=== PATIENT | female | born 1945 | race Caucasian/White ===

== ENCOUNTER 2016-10-25 02:10 | Inpatient (IN) | payer OTHER, MEDICAID ==
[~2016-10-25] VITALS: Ht 149.9 cm; Wt 68.0 kg
[2016-10-25 02:10] VITALS: BP 169/88
[~2016-10-25 02:10] MED LIST: ALBUTEROL PO; CIPROFLOXACIN500 M1 PO; DEXILANT PO; LEVAQUIN500 MG PO; OYSTER CAL 500500 MG PO; PROMETHAZINE PO; QVAR HFA M80 MCG/ACT IH; SPIRIVA18 MCG IH; VENTOLIN H0.09 MG/Ac PO
--- NOTE | 2016-10-25 02:10 | NUR ---
0143- PT [facility]. TAKEN TO BED 7
--- NOTE | 2016-10-25 02:15 | NUR ---
71Y F BIB AMBULANCE AFTER PT FOUND LYING ON THE FLOOR. PT ANSWERS APPROPRIATELY BUT EASILY FORGETS. PT CANT REMEMBER THE DETAILS OF WHAT HAPPENED. NO DISTRESS NOTED. V/S MONITORED.
--- NOTE | 2016-10-25 02:32 | NUR ---
Dr. Hunt evaluating patient at bedside.
[2016-10-25] MEDS ORDERED: NACL 0.9% 1,000 ML IV ONE (02:45)
--- NOTE | 2016-10-25 03:12 | NUR ---
PT TAKEN TO CT
--- NOTE | 2016-10-25 03:29 | NUR ---
PT RETURN FROM CT
[2016-10-25] MEDS ORDERED: ASPIRIN 81 MG TAB.CHEW PO ONE (04:15)
--- NOTE | 2016-10-25 04:32 | NUR ---
PHLEB AT BEDSIDE FOR REPEAT TROPONIN
[2016-10-25] MEDS ORDERED: NITROGLYCERIN 2% 1 GM PKT TP ONE (05:05)
[2016-10-25] MEDS ORDERED: ONDANSETRON 4 MG/2 ML VIAL IVP PRN (05:20)
--- NOTE | 2016-10-25 06:16 | NUR ---
Patient will be admitted to care of DR BERNARD. Admited to TELEMETRY. Will go to room 109B. Belongings list completed. Report to MARGRET DONNELLY.
--- NOTE | 2016-10-25 06:40 | NUR ---
RECEIVED FROM ER PER SILVA. ABLE TO WALK FROM DOORWAY OF ROOM TO BED INSIDE ROOM WITH STANDBY ASSIST. DAUGHTER AT BEDSIDE . VERBALIZES WELL NEEDS. CARE PLANS FOR THE DAY DISCUSSED WITH PT. AND FAMILY MEMBERS. DX. OF CHEST PAIN R/O ACS. IVF SITE TO LAC#20. PATENT. PER PT. AND DAUGHTER "SKIN IS INTACT" REFUSED TO BE CHECKED. A/O X 4. RAPID RESPONSE PROTOCOL EXPLAINED TO PT. ORIENTED TO ROOM AND CALL LIGHT USE. AFEBRILE. BED ALARM ON. NO EDEMA NOTED.
[2016-10-25 06:53] VITALS: BP 150/87
--- NOTE | 2016-10-25 07:05 | NUR ---
RECEIVED REPORT FROM HOME HEALTH AIDE RN. PT IS AWAKE, A/O X 4, AMBULATORY. NO S/S OF ACUTE CARDIAC/RESPIRATORY DISTRESS OR DISCOMFORT. LAC 20G IV INTACT. LBM 10/24/16. SAFETY MEASURES IN PLACE, FALL RISK PRECAUTIONS IN PLACE, AND CALL LIGHT WITHIN REACH. WILL INITIATE PLAN OF CARE AND CONTINUE TO MONITOR.
[2016-10-25 08:00] VITALS: BP 118/69
[2016-10-25] MEDS ORDERED: ACETAMINOPHEN 325 MG TAB PO PRN (08:15)
[2016-10-25] MEDS ORDERED: TEMAZEPAM 15 MG CAP PO PRN (08:15)
[2016-10-25] MEDS ORDERED: cloNIDine 0.1 MG TAB PO PRN (08:15)
[2016-10-25] MEDS ORDERED: [UNRECOGNIZED DRUG - OTHER] INH SCH (09:00)
[2016-10-25] MEDS: ENOXAPARIN 30 MG/0.3 ML SYR SUBQ SCH (09:00)
[2016-10-25] MEDS: PANTOPRAZOLE 40 MG TABEC PO SCH (09:00)
[2016-10-25] MEDS ORDERED: DEXILANT 60 MG PO SCH (09:00)
[2016-10-25] MEDS: amLODIPine 5 MG TAB PO SCH (09:01)
[2016-10-25] MEDS: NACL 0.9% 1,000 ML IV SCH ×2 (09:09→15:40)
[2016-10-25] MEDS: IPRATROPIUM 0.02% 0.5 MG/2.5 ML NEBU INH SCH ×4 (09:14→21:03)
--- NOTE | 2016-10-25 10:00 | NUR ---
ADMINISTERED AM MEDS, PT TOLERATED AM MEDS WELL. NO S/S OF ACUTE DISTRESS OR DISCOMFORT. FAMILY AT BEDSIDE. CALL LIGHT WITHIN REACH. WILL CONTINUE TO MONITOR.
[2016-10-25 12:00] VITALS: BP 120/71
--- NOTE | 2016-10-25 13:10 | NUR ---
PT SLEEPING. NO S/S OF ACUTE DISTRESS OR DISCOMFORT. CALL LIGHT WITHIN REACH. WILL CONTINUE TO MONITOR.
--- NOTE | 2016-10-25 15:17 | NUR ---
PT IS RESTING WITH EYES CLOSED. NO S/S OF ACUTE DISTRESS OR DISCOMFORT. CALL LIGHT WITHIN REACH. WILL CONTINUE TO MONITOR.
[2016-10-25] MEDS: HYDROcodone/APAP 5/325 MG 1 TAB TAB PO PRN ×2 (15:39→19:39)
[2016-10-25 16:00] VITALS: BP 151/73
--- NOTE | 2016-10-25 17:13 | NUR ---
PT IS AWAKE, CONVERSING WITH FAMILY AT BEDSIDE. NO S/S OF ACUTE DISTRESS OR DISCOMFORT. CALL LIGHT WITHIN REACH. WILL CONTINUE TO MONITOR.
--- NOTE | 2016-10-25 19:04 | NUR ---
ENDORSED REPORT TO ROAD SIGN INSTALLER ANDRZEJ OSPINA. PT AWAKE, WITH FAMILY AT BEDSIDE. NO S/S OF ACUTE DISTRESS OR DISCOMFORT. PT IN STABLE CONDITION. CALL LIGHT WITHIN REACH.
--- NOTE | 2016-10-25 19:10 | NUR ---
RECEIVED PT AWAKE TALKING TO FAMILY MEMBERS AT BEDSIDE, AAOX4, COMPLAINING OF FABY KNEE/LEG PAIN, WILL MEDICATE PRN, VITAL SIGNS STABLE, IVF INFUSING WELL, POC DISCUSSED, ENCOURAGE TO USE CALL LIGHT FOR ASSISTANCE, VERBALIZED UNDERSTANDING, SAFETY PRECAUTIONS IN PLACE, SIDE RAILS UP AND BED ALARM ON, CALL LIGHT WITHIN REACH.
[2016-10-25 20:00] VITALS: BP 120/54
--- NOTE | 2016-10-25 21:15 | NUR ---
PT AMBULATED TO BR WITH MINIMAL ASSIST, ALL NEEDS ATTENDED.
[2016-10-26] VITALS: BP 109/56
--- NOTE | 2016-10-26 | NUR ---
ASLEEP, EASILY AROUSABLE, VITAL SIGNS STABLE, DENIES ANY PAIN, IVF INFUSING WELL, CONTINUE TO MONITOR CLOSELY.
[2016-10-26] MEDS: NACL 0.9% 1,000 ML IV SCH ×2 (00:51→16:36)
[2016-10-26] MEDS: HYDROcodone/APAP 5/325 MG 1 TAB TAB PO PRN ×2 (02:40→06:38)
--- NOTE | 2016-10-26 02:40 | NUR ---
PT ASSISTED TO BR, MEDICATED PRN FOR RT KNEE PAIN WITH NORCO, MONITORED CLOSELY.
[2016-10-26 04:00] VITALS: BP 116/58
--- NOTE | 2016-10-26 06:23 | NUR ---
AMBULATED TO BR WITH STANDBY ASSIST, COMPLAINING OF RT KNEE PAIN, WILL MEDICATE WHEN DUE, IVF INFUSING WELL.
--- NOTE | 2016-10-26 07:15 | NUR ---
PT AWAKE, NO SIGNS OF DISTRESS, REPORT GIVEN TO FRANCINE DONNELLY FOR CONTINUITY OF CARE.
--- NOTE | 2016-10-26 07:16 | NUR ---
RECEIVED PT FROM ANDRZEJ OSPINA AWAKE AND LYING ON BED, AAOX4, WITH IV ACCESS ON LEFT AC 20G INFUSING FLUIDS WELL. SKIN IS INTACT. NO S/S OF RESPIRATORY DISTRESS OR DISCOMFORT. DISCUSSED PLAN OF CARE, PT VERBALIZED UNDERSTANDING. CALL LIGHT WIHTIN REACH, WILL CONTINUE TO MONITOR.
[2016-10-26 08:00] VITALS: BP 145/82
[2016-10-26] MEDS: IPRATROPIUM 0.02% 0.5 MG/2.5 ML NEBU INH SCH ×3 (08:03→17:27)
[2016-10-26] MEDS ORDERED: ASPIRIN 81 MG TAB.CHEW PO SCH (09:00)
--- NOTE | 2016-10-26 09:05 | NUR ---
PATIENT HAS BEEN SCREENED AND CATEGORIZED MODERATE NUTRITION RISK. PATIENT WILL BE SEEN WITHIN 3-5 DAYS OF ADMISSION. 10/28/16-10/30/[address]
[2016-10-26] MEDS: PANTOPRAZOLE 40 MG TABEC PO SCH (09:08)
[2016-10-26] MEDS: amLODIPine 5 MG TAB PO SCH (09:09)
[2016-10-26] MEDS: ENOXAPARIN 30 MG/0.3 ML SYR SUBQ SCH (09:16)
--- NOTE | 2016-10-26 09:20 | NUR ---
DUE MEDS GIVEN, PT TOLERATED WELL. COMPLAINED OF VOMITING, ZOFRAN GIVEN ORDERED. PAGED FOR LOW MAGNESIUM, WILL CARRY OUT NEW ORDERS. CALL LIGHT WITHIN REACH, WILL CONTINUE TO MONITOR.
[2016-10-26] MEDS: MAG SULF 2000 MG/WATER PREMIX 100 ML IV SCH ×2 (09:58→12:56)
--- NOTE | 2016-10-26 11:27 | NUR ---
JOY NOTE INITIAL REVIEW FAXED TO [facility] / FAX# [phone], ATTN: ELVIA #[phone]
--- NOTE | 2016-10-26 11:45 | NUR ---
PT AWAKE WHILE SITTING ON BED, WITH DAUGHTERS AT BEDSIDE. PT REQUESTS XRAY OF KNEE, INFORMED DR BERNARD TO VERIFY.
[2016-10-26 12:00] VITALS: BP 148/80
--- NOTE | 2016-10-26 14:31 | NUR ---
DR BERNARD AT NURSES STATION
[2016-10-26 16:00] VITALS: BP 147/76
--- NOTE | 2016-10-26 16:26 | NUR ---
DISCHARGE INSTRUCTIONS GIVEN, PT VERBALIZED UNDERSTANDING. WITH DAUGHTER AT BEDSIDE. NO S/S OF RESPIRATORY DISTRESS, NO COMPLAINTS AT THIS TIME. WAITING FOR MAGNESIUM IV TO FINISH BEFORE PT LEAVES.
--- NOTE | 2016-10-26 17:50 | NUR ---
PT LEFT UNIT WITH DAUGHTERS IN STABLE CONDITION
== END 2016-10-26 17:50 | disposition home or self-care (01) | DRG 895 ==
LOC: MED 02:10 → MTU 05:24
PROVIDERS: ADMIT Internal Medicine Pulmonary Disease; ATTEND Internal Medicine Pulmonary Disease
PROC: HZ31ZZZ Individual Counseling for Substance Abuse Treatment, Behavioral (ICD-10-PCS; principal; 2016-10-25)
DX: F10.129 Alcohol abuse with intoxication, unspecified (principal); N17.9 Acute kidney failure, unspecified; R55 Syncope and collapse; I12.9 Hypertensive chronic kidney disease with stage 1 through stage 4 chronic kidney disease, or unspecified chronic kidney disease; Y90.8 Blood alcohol level of 240 mg/100 ml or more; E86.0 Dehydration; J44.9 Chronic obstructive pulmonary disease, unspecified; K21.9 Gastro-esophageal reflux disease without esophagitis; M10.9 Gout, unspecified; N18.3 Chronic kidney disease, stage 3 (moderate); F17.210 Nicotine dependence, cigarettes, uncomplicated; W19.XXXA Unspecified fall, initial encounter; Z90.12 Acquired absence of left breast and nipple; Z79.899 Other long term (current) drug therapy; Z85.3 Personal history of malignant neoplasm of breast

== ENCOUNTER 2021-07-01 13:29 | Emergency (ER) | payer OTHER ==
[~2021-07-01] VITALS: Ht 152.4 cm; Wt 63.5 kg
[~2021-07-01 13:29] MED LIST changes: -ALBUTEROL PO; +BECL0.089 IH; -CIPROFLOXACIN500 M1 PO; -LEVAQUIN500 MG PO; -OYSTER CAL 500500 MG PO; -PROMETHAZINE PO; -QVAR HFA M80 MCG/ACT IH; -SPIRIVA18 MCG IH; +TIOT18CA2 IH; -VENTOLIN H0.09 MG/Ac PO
[2021-07-01 13:52] VITALS: BP 128/60
--- NOTE | 2021-07-01 14:06 | NUR ---
Patient wheelchair assisted to bed 11.
--- NOTE | 2021-07-01 14:10 | NUR ---
76 y/o F BIB daughter from home c/o SOB, cough and muscle cramps during dialysis treatment today. Patient A&Ox4, ambulatory, states at dialysis receiving 3 hour treatment and began experiencing worsening SOB upon physical exertion. Patient MWF, completed full, 3 hour treatment today prior to arrival. States during dialysis she typically has abdominal pain with bilateral LE cramping. Patient states productive cough + SOB x 1 week ago and reports concern for possible PNA. Patient presents with dialysis port L upper chest + received recent surgery for fistula to left UE. Patient denies fever, chills, abdominal pain, nausea, vomiting, diarrhea, dysuria, chest pain, back pain. Pt placed onto web database developer and gown provided. VSS; respirations even/unlabored. Skin warm/pink/dry. Bed locked in lowest position, side rails x 1, call light in reach. PMH/Sx: breast cancer, kidney failure, dialysis MWF, "mild stroke," HLD, hysterectomy Meds: amlodipine, actavis, greenstone, zydus, atorvastatin, sevelamer, Vit D3, Zinc NKA
--- NOTE | 2021-07-01 14:10 | NUR ---
Dr. Jones is evaluating patient at bedside.
--- NOTE | 2021-07-01 14:40 | NUR ---
RAD at bedside
--- NOTE | 2021-07-01 15:06 | NUR ---
Blood sample collected, handed to CPT. Brigette
[2021-07-01 15:14] LABS: BASOPHILS # (AUTO) 0.1 K/uL (0.00-0.22); BASOPHILS % (AUTO) 0.9 % (0.0-2.0); EOSINOPHILS # (AUTO) 0.3 K/uL (0-0.4); EOSINOPHILS % (AUTO) 3.8 % (0.0-4.0); HEMATOCRIT 35.2 % (36-48); LYMPHOCYTES % (AUTO) 15.2 % (20.5-51.1); MEAN CORPUSCULAR HEMOGLOBIN 35 pg (27-31); MEAN CORPUSCULAR HGB CONC 34 g/dL (33-37); MEAN CORPUSCULAR VOLUME 103.3 fL (80-94); MONOCYTES # (AUTO) 0.3 K/uL (0.8-1.0); MONOCYTES % (AUTO) 4.1 % (1.7-9.3); NEUTROPHILS # (AUTO) 5.2 K/uL (1.8-7.7); PLATELET COUNT (AUTO) 249 K/uL (140-450); RED BLOOD CELL COUNT(AUTO) 3.41 MIL/uL (4.20-5.40); RED CELL DISTRIBUTION WIDTH 13.9 % (11.6-13.7); WHITE BLOOD COUNT (AUTO) 6.8 K/uL (4.8-10.8)
[2021-07-01 15:30] LABS: ANION GAP 13.3 (8-16); ASPARTATE AMINOTRANSFERASE 37 U/L (15-37); CARBON DIOXIDE 29.5 mmol/L (21-32); CHLORIDE 95 mmol/L (98-107); GLUCOSE 92 mg/dL (74-106); POTASSIUM 4.8 mmol/L (3.5-5.1); SODIUM SERUM 133 mmol/L (136-145); TOTAL BILIRUBIN 0.6 mg/dL (0.0-1.0); UREA NITROGEN, BLOOD 19 mg/dL (7-18)
[2021-07-01 15:31] LABS: CREATININE 4.3 mg/dL (0.6-1.3)
[2021-07-01 15:40] LABS: CREATINE KINASE MB 0.5 ng/mL (0-3.6)
[2021-07-01] MEDS ORDERED: NICO4LOZ35 PO (18:05)
[2021-07-01] MEDS ORDERED: NICO1PAT16 TD (18:05)
[2021-07-01 18:30] VITALS: BP 107/53
--- NOTE | 2021-07-01 18:30 | NUR ---
Patient discharged with v/s stable. Written and verbal after care instructions given and explained. Patient alert, oriented and verbalized understanding of instructions. Ambulatory with steady gait. All questions addressed prior to discharge. ID band removed. Patient advised to follow up with PMD. Rx of Nicotine Patch, Nicotine Logenze given. Patient educated on indication of medication including possible reaction and side effects. Opportunity to ask questions provided and answered.
== END 2021-07-01 18:30 | disposition home or self-care (01) ==
LOC: MED 13:29
DX: R06.02 Shortness of breath (principal); R05.9 Cough, unspecified; I12.9 Hypertensive chronic kidney disease with stage 1 through stage 4 chronic kidney disease, or unspecified chronic kidney disease; N18.2 Chronic kidney disease, stage 2 (mild); F17.210 Nicotine dependence, cigarettes, uncomplicated
CPT/HCPCS: 36415; 71045; 80053; 82550; 82553; 83880; 84484; 85025; 93005; 99285; Q0092

== ENCOUNTER 2021-07-14 08:21 | Emergency (ER) | payer OTHER ==
[~2021-07-14] VITALS: Ht 134.6 cm; Wt 62.6 kg
[~2021-07-14 08:21] MED LIST changes: +NICO1PAT16 TD; +NICO4LOZ35 PO
[2021-07-14 08:49] VITALS: BP 156/86
--- NOTE | 2021-07-14 08:49 | NUR ---
PT W/C ASSISTED TO BED 1
--- NOTE | 2021-07-14 09:00 | NUR ---
DR GONZALEZ EVALUATING PT AT THIS TIME
[2021-07-14] MEDS ORDERED: ACETAMINOPHEN 325 MG TAB PO SCH (09:05)
--- NOTE | 2021-07-14 09:30 | NUR ---
76 Y/O FEMALE BIB DAUGHTER C/O GALVAN, SORE THROAT, FACE SWELLING, SOB, COUGH, STUFFY NOSE, FATIGUE X3 DAYS. PT IS A DIALYSIS PT, MISSED WEDNESDAY AND TODAY D/T FEELING SICK. CRACKLES AUSCULTATED THROUGHOUT. SPO2 100% ON RA. NO SIGNS OF DISTRESS. PTS HOB ELEVATED TO 90 DEGREES. PT HAS MODERATE EYELID SWELLING. NO EDEMA NOTED. PT HAS DIALYSIS SHUNT TO L ARM AND NEW DIALYSIS PORT TO UPPER L CHEST. PT DENIES PAIN AT THIS TIME. DENIES N/V/CP. PT IS COVID/FLU VACCINATED. PT ON BACON STRINGER, A/O X4, EVEN AND UNLABORED RESPIRATIONS. 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
[2021-07-14] MEDS ORDERED: predniSONE 20 MG TAB PO ONE (10:30)
[2021-07-14] MEDS ORDERED: ALBUTEROL HFA MDI 90 MCG/ACTUATION 8 GM INH ONE (10:30)
--- NOTE | 2021-07-14 10:40 | NUR ---
RT AT BEDSIDE FOR BREATHING TREATMENT
[2021-07-14 11:45] VITALS: BP 123/75
--- NOTE | 2021-07-14 11:45 | NUR ---
Patient discharged with v/s stable. Written and verbal after care instructions ABOUT SORE THROAT given and explained. Patient verbalized understanding. Wheel Chair Assisted with to LOBBY TO WAIT FOR DAUGHTER. All questions addressed prior to discharge. Advised to follow up with PMD.
== END 2021-07-14 11:45 | disposition home or self-care (01) ==
LOC: MED 08:21
DX: J02.9 Acute pharyngitis, unspecified (principal); I12.0 Hypertensive chronic kidney disease with stage 5 chronic kidney disease or end stage renal disease; N18.6 End stage renal disease; Z99.2 Dependence on renal dialysis; Z20.822 Contact with and (suspected) exposure to COVID-19; J44.9 Chronic obstructive pulmonary disease, unspecified; F17.200 Nicotine dependence, unspecified, uncomplicated; Z86.73 Personal history of transient ischemic attack (TIA), and cerebral infarction without residual deficits; Z85.3 Personal history of malignant neoplasm of breast; Z79.899 Other long term (current) drug therapy
CPT/HCPCS: 87426; 94664; 99283; J7512

== ENCOUNTER 2021-08-31 17:20 | Emergency (ER) | payer OTHER ==
[~2021-08-31] VITALS: Ht 152.4 cm; Wt 68.0 kg
[2021-08-31 17:32] VITALS: BP 128/59
--- NOTE | 2021-08-31 17:38 | NUR ---
PT SENT TO LOBBY
--- NOTE | 2021-08-31 17:58 | NUR ---
PT AMBULATED TO ER BED 8
--- NOTE | 2021-08-31 18:29 | NUR ---
Lab at bedside
--- NOTE | 2021-08-31 18:30 | NUR ---
76 y/o F BIB daughter c/o L sided facial swelling/headache. Pt A&Ox4, ambulatory, states associated L eye blurry vision and pain. Pt states dizziness as well since waking up this morning. Patient reports headache 3/10, sharp/intermittent, non-radiating. Patient also reports Left shoulder and L upper chest dialysis port pain 6/10, pressure/intermittent, non-radiating. Pt dialysis patient: MWF last completed treatment Wednesday. Pt denies nausea, vomiting, diarrhea, chest pain, abdominal pain, neck pain, muscle aches, fever, chills, cough. Pt placed onto fitting room associate and placed into a gown. VSS; respirations even/unlabored. Bed locked in lowest position, side rails x 2 for pt safety. Daughter at bedside. PMH: HTN, ESRD Meds: amlodipine, actavis, Zydus, sevelaver Sx: breast cancer, hysterectomy
[2021-08-31 18:43] LABS: BASOPHILS # (AUTO) 0.1 K/uL (0.00-0.22); BASOPHILS % (AUTO) 0.8 % (0.0-2.0); EOSINOPHILS # (AUTO) 0.3 K/uL (0-0.4); EOSINOPHILS % (AUTO) 4.1 % (0.0-4.0); HEMATOCRIT 29.5 % (36-48); HEMOGLOBIN 10.4 g/dL (12.0-16.0); LYMPHOCYTES # (AUTO) 1.5 K/uL (2.5-16.5); LYMPHOCYTES % (AUTO) 22.4 % (20.5-51.1); MEAN CORPUSCULAR HEMOGLOBIN 36 pg (27-31); MEAN CORPUSCULAR HGB CONC 35 g/dL (33-37); MEAN CORPUSCULAR VOLUME 100.9 fL (80-94); MONOCYTES # (AUTO) 0.6 K/uL (0.8-1.0); MONOCYTES % (AUTO) 9.6 % (1.7-9.3); NEUTROPHILS # (AUTO) 4.2 K/uL (1.8-7.7); NEUTROPHILS % (AUTO) 63.1 % (42.2-75.2); PLATELET COUNT (AUTO) 217 K/uL (140-450); RED BLOOD CELL COUNT(AUTO) 2.93 MIL/uL (4.20-5.40); RED CELL DISTRIBUTION WIDTH 13.8 % (11.6-13.7); WHITE BLOOD COUNT (AUTO) 6.7 K/uL (4.8-10.8)
--- NOTE | 2021-08-31 18:52 | NUR ---
Unable to obtain IV. ERMD made aware; Ultrasound at bedside for guided IV
[2021-08-31 18:53] LABS: ANION GAP 14.9 (8-16); CARBON DIOXIDE 28.4 mmol/L (21-32); CHLORIDE 100 mmol/L (98-107); GLUCOSE 105 mg/dL (74-106); POTASSIUM 4.3 mmol/L (3.5-5.1); SODIUM SERUM 139 mmol/L (136-145); UREA NITROGEN, BLOOD 26 mg/dL (7-18)
[2021-08-31 18:55] LABS: CREATININE 7.2 mg/dL (0.6-1.3)
--- NOTE | 2021-08-31 19:01 | NUR ---
ZEKE Rodriges is at bedside for ultrasound guided IV
[2021-08-31] MEDS ORDERED: ACETAMINOPHEN 650 MG/20.3 ML UDC PO ONE (19:05)
--- NOTE | 2021-08-31 19:25 | NUR ---
Report and transfer of care endorsed to ANDRZEJ Diggs
--- NOTE | 2021-08-31 20:42 | NUR ---
Pt back from CT.
[2021-08-31] MEDS ORDERED: ACETAMINOPHEN 650 MG/20.3 ML UDC ONE (20:45)
--- NOTE | 2021-08-31 22:50 | NUR ---
Note corrina in EDM - 08/31/21 at 2349 by [email or web address] PT LYING SIDEWAYS IN BED. X2 SIDE RAILS UP FOR SAFETY. ALL VSS .
--- NOTE | 2021-08-31 23:00 | NUR ---
PT LYING IN LT LATERAL POSITION. X2 SIDE RAILS UP FOR SAFETY. ALL VSS.
--- NOTE | 2021-08-31 23:00 | NUR ---
PT DAUGHTER NUMBER : BURT [phone]
--- NOTE | 2021-09-01 00:17 | NUR ---
DR. AKINS AT BEDSIDE EXPLAINING RESULTS OF CT. ALL PT QUESTIONS ANSWERED. PT TO FOLLOW UP [facility]
--- NOTE | 2021-09-01 00:29 | NUR ---
ASSISTED PT TO RESTROOM. DAUGHTER AT BEDSIDE
[2021-09-01 01:23] VITALS: BP 122/49
--- NOTE | 2021-09-01 01:23 | NUR ---
Patient discharged with v/s stable. Written and verbal after care instructions given and explained. Patient verbalized understanding. Ambulatory with steady gait. All questions addressed prior to discharge. Advised to follow up with PMD.
== END 2021-09-01 01:23 | disposition home or self-care (01) ==
LOC: MED 17:20
DX: R07.89 Other chest pain (principal); I12.0 Hypertensive chronic kidney disease with stage 5 chronic kidney disease or end stage renal disease; N18.6 End stage renal disease
CPT/HCPCS: 36415; 71260; 80048; 85025; 99285; Q9967

== ENCOUNTER 2022-08-16 11:04 | Emergency (ER) | payer OTHER ==
[~2022-08-16] VITALS: Ht 157.5 cm; Wt 79.4 kg
[2022-08-16 11:12] VITALS: BP 113/50
--- NOTE | 2022-08-16 11:14 | NUR ---
SWABBED AND SENT TO LAB
[2022-08-16 12:18] LABS: RSV NEGATIVE (NEGATIVE)
[2022-08-16] MEDS ORDERED: PROM118S5 PO (14:01)
== END 2022-08-16 14:14 | disposition home or self-care (01) ==
LOC: MED 11:04
DX: B34.9 Viral infection, unspecified (principal); I12.0 Hypertensive chronic kidney disease with stage 5 chronic kidney disease or end stage renal disease; N18.6 End stage renal disease; Z99.2 Dependence on renal dialysis; Z20.822 Contact with and (suspected) exposure to COVID-19; F17.200 Nicotine dependence, unspecified, uncomplicated; J44.9 Chronic obstructive pulmonary disease, unspecified; Z71.6 Tobacco abuse counseling; Z86.73 Personal history of transient ischemic attack (TIA), and cerebral infarction without residual deficits; Z85.3 Personal history of malignant neoplasm of breast; Z79.899 Other long term (current) drug therapy
CPT/HCPCS: 71045; 87420; 99284

== ENCOUNTER 2022-12-11 19:52 | Inpatient (IN) | payer OTHER ==
[~2022-12-11] VITALS: Ht 149.9 cm; Wt 64.9 kg
[~2022-12-11 19:52] MED LIST changes: +PROM118S5 PO
[2022-12-11 19:55] VITALS: BP 110/52
--- NOTE | 2022-12-11 19:55 | NUR ---
TO BED VIA W/C
--- NOTE | 2022-12-11 20:03 | NUR ---
SEEN AND EXAMINED BY LAUREL
--- NOTE | 2022-12-11 20:15 | NUR ---
Patient received on bed lying comfortably and awake. Alert and oriented x4. No acute distresss. Complained of 8/10 chest pain and right lower extremity. Respirations even and rate at 22 per minute with O2 Saturation at 99% on room air.
[2022-12-11 20:51] LABS: BASOPHILS # (AUTO) 0.1 K/uL (0.00-0.22); BASOPHILS % (AUTO) 1.4 % (0.0-2.0); EOSINOPHILS # (AUTO) 0.2 K/uL (0-0.4); EOSINOPHILS % (AUTO) 2.6 % (0.0-4.0); HEMOGLOBIN 11.1 g/dL (12.0-16.0); LYMPHOCYTES # (AUTO) 1.9 K/uL (2.5-16.5); LYMPHOCYTES % (AUTO) 25.9 % (20.5-51.1); MEAN CORPUSCULAR HEMOGLOBIN 34 pg (27-31); MEAN CORPUSCULAR HGB CONC 35 g/dL (33-37); MEAN CORPUSCULAR VOLUME 97.6 fL (80-94); MONOCYTES # (AUTO) 0.6 K/uL (0.8-1.0); MONOCYTES % (AUTO) 7.9 % (1.7-9.3); NEUTROPHILS # (AUTO) 4.4 K/uL (1.8-7.7); NEUTROPHILS % (AUTO) 62.2 % (42.2-75.2); PLATELET COUNT (AUTO) 224 K/uL (140-450); RED BLOOD CELL COUNT(AUTO) 3.28 MIL/uL (4.20-5.40); RED CELL DISTRIBUTION WIDTH 13.4 % (11.6-13.7); WHITE BLOOD COUNT (AUTO) 7.2 K/uL (4.8-10.8)
[2022-12-11 21:28] LABS: ALBUMIN 3.6 g/dL (3.4-5.0); ANION GAP 8.4 (8-16); ASPARTATE AMINOTRANSFERASE 18 U/L (15-37); CARBON DIOXIDE 34.7 mmol/L (21-32); CHLORIDE 98 mmol/L (98-107); CREATININE 3.3 mg/dL (0.6-1.3); GLUCOSE 98 mg/dL (74-106); POTASSIUM 3.1 mmol/L (3.5-5.1); SODIUM SERUM 138 mmol/L (136-145); TOTAL BILIRUBIN 0.4 mg/dL (0.0-1.0); UREA NITROGEN, BLOOD 10 mg/dL (7-18)
[2022-12-12] MEDS ORDERED: DOCUSATE SODIUM 100 MG GELCAP PO PRN (01:05)
[2022-12-12] MEDS ORDERED: LORazepam 2 MG/ML VIAL IM/IVP PRN (01:05)
[2022-12-12] MEDS ORDERED: ONDANSETRON 4 MG/2 ML VIAL IM/IVP PRN (01:05)
[2022-12-12] MEDS ORDERED: ZOLPIDEM 5 MG TAB PO PRN (01:05)
[2022-12-12] MEDS ORDERED: ACETAMINOPHEN 325 MG TAB PO PRN (01:05)
[2022-12-12] MEDS ORDERED: NACL 0.9% 1,000 ML IV SCH (01:05)
[2022-12-12] MEDS ORDERED: MORPHINE SULFATE 2 MG/ML SYR IVP PRN (01:05)
[2022-12-12] MEDS ORDERED: NITROGLYCERIN 0.4 MG TAB SL ONE (01:15)
[2022-12-12] MEDS ORDERED: NITROGLYCERIN 0.4 MG TAB SL PRN (01:35)
--- NOTE | 2022-12-12 02:54 | NUR ---
RAFAEL, DAUGHTER [phone]
[2022-12-12 03:08] LABS: PHOSPHORUS 2.3 mg/dL (2.5-4.9)
[2022-12-12 03:10] LABS: PROTHROMBIN TIME 10.4 secs (10.8-13.4)
[2022-12-12 07:06] LABS: EOSINOPHILS % (AUTO) 3.2 % (0.0-4.0); HEMATOCRIT 32.6 % (36-48); HEMOGLOBIN 11.2 g/dL (12.0-16.0); LYMPHOCYTES % (AUTO) 27.4 % (20.5-51.1); MEAN CORPUSCULAR HEMOGLOBIN 34 pg (27-31); MEAN CORPUSCULAR HGB CONC 34 g/dL (33-37); MEAN CORPUSCULAR VOLUME 97.8 fL (80-94); MONOCYTES % (AUTO) 7.1 % (1.7-9.3); NEUTROPHILS # (AUTO) 4.2 K/uL (1.8-7.7); NEUTROPHILS % (AUTO) 61.3 % (42.2-75.2); PLATELET COUNT (AUTO) 242 K/uL (140-450); RED BLOOD CELL COUNT(AUTO) 3.33 MIL/uL (4.20-5.40); RED CELL DISTRIBUTION WIDTH 13.5 % (11.6-13.7); WHITE BLOOD COUNT (AUTO) 6.9 K/uL (4.8-10.8)
[2022-12-12 07:07] LABS: BASOPHILS # (AUTO) 0.1 K/uL (0.00-0.22); EOSINOPHILS # (AUTO) 0.2 K/uL (0-0.4); LYMPHOCYTES # (AUTO) 1.9 K/uL (2.5-16.5); MONOCYTES # (AUTO) 0.5 K/uL (0.8-1.0)
[2022-12-12 07:11] LABS: MAGNESIUM 2.2 mg/dL (1.8-2.4); PHOSPHORUS 3.1 mg/dL (2.5-4.9)
[2022-12-12 07:23] LABS: ANION GAP 11.3 (8-16); CARBON DIOXIDE 33.1 mmol/L (21-32); CHLORIDE 98 mmol/L (98-107); GLUCOSE 92 mg/dL (74-106); POTASSIUM 3.4 mmol/L (3.5-5.1); SODIUM SERUM 139 mmol/L (136-145); UREA NITROGEN, BLOOD 12 mg/dL (7-18)
[2022-12-12 07:28] LABS: CREATININE 4.1 mg/dL (0.6-1.3)
--- NOTE | 2022-12-12 07:30 | NUR ---
PT ON THE PHONE, NO AC DISTRESS, DENIES ANY PAIN, NSR ON CM, O2 SAT 98% RA, SR UP TIMES 2
--- NOTE | 2022-12-12 08:20 | NUR ---
PT ARRIVED TO MST UNIT AT 0815 VIA GURNEY. PT STABLE AND ABLE TO AMBULATE WITH ASSISTANCE TO BED. PT ON RM AIR, IV TO RIGHT AC, CLEAN/INTACT. SON WITH PT AT BEDSIDE. WILMER CAREGIVER: BURT [id number] ORIENTED PT TO BED MECHANICS, BATHROOM, VISITING HOURS, CALL LIGHT. BED IN LOWEST POSITION, 2 SIDE RAILS UP, CALL LIGHT PLACED WITHIN REACH. NO FURTHER NEEDS ARE TO BE MET AT THIS TIME. WILL CONTINUE WITH CARE.
--- NOTE | 2022-12-12 08:23 | NUR ---
TRANSFERRED TO [facility], REPORT TO PEDRO LUIS. NO AC DISTRESS, SL PATENT RAC
[2022-12-12] MEDS: ATORVASTATIN 20 MG TAB PO SCH (09:53)
[2022-12-12] MEDS: ASPIRIN 81 MG TAB.CHEW PO SCH (09:54)
[2022-12-12] MEDS: HYDROcodone/APAP 5/325 MG 1 TAB TAB PO PRN (10:05)
[2022-12-12 12:00] VITALS: BP 132/61
[2022-12-12] MEDS ORDERED: POTASSIUM CHLORIDE 10 MEQ TABER PO SCH (13:24)
[2022-12-12] MEDS ORDERED: ALEN35TA PO (14:10)
[2022-12-12] MEDS ORDERED: SEVE800T6 PO (14:10)
[2022-12-12] MEDS ORDERED: AMLO10TA PO (14:10)
[2022-12-12] MEDS ORDERED: CINA30TA4 PO (14:10)
[2022-12-12] MEDS ORDERED: CARV3.12 PO (14:10)
[2022-12-12] MEDS ORDERED: GABA100C PO (14:10)
[2022-12-12] MEDS ORDERED: ATOR10TA51 PO (14:10)
[2022-12-12] MEDS ORDERED: [UNRECOGNIZED DRUG - CODE] PO (14:10)
[2022-12-12 16:00] VITALS: BP 110/57
--- NOTE | 2022-12-12 19:29 | NUR ---
ENDORSED PT TO NIGHTSHIFT NURSE FOR CONTINUITY OF CARE. PT IS STABLE, ASLEEP IN BED, WOKE TO NAME AND TOUCH. NO FURTHER NEEDS ARE TO BE MET AT THIS TIME. BED IN LOWEST POSITION, 2 SIDE RAILS UP, CALL LIGHT WITHIN REACH.
--- NOTE | 2022-12-12 19:30 | NUR ---
RECEIVED REPORT FROM DAY SHIFT NURSE MARILYN FOR CONTINUITY OF CARE. PATIENT IS A&O X4. PATIENT IS ON ROOM AIR; BREATHING IS NORMAL WITH SYMMETRICAL RISE AND FALL OF CHEST. IV IS A 20G RAC, NO FLUIDS RUNNING AT THIS TIME. PATIENT IS SITTING IN BED IN HIGH-FOWLERS POSITION. BED IS IN LOWEST POSITION, WHEELS LOCKED, CALL LIGHT IN PLACE. WILL CONTINUE TO OBSERVE PATIENT.
[2022-12-12 20:00] VITALS: BP 104/39
[2022-12-13] VITALS: BP 112/52
[2022-12-13 04:00] VITALS: BP 124/52
[2022-12-13] MEDS: HYDROcodone/APAP 5/325 MG 1 TAB TAB PO PRN (04:54)
--- NOTE | 2022-12-13 04:56 | NUR ---
PATIENT HAS SLEPT THROUGHOUT THE NIGHT. PATIENT WOKE UP AND COMPLAINED OF HEADACHE 6/10 AND REQUESTED A NORCO FOR THE PAIN. CHECKED CHART, NORCO WAS APPROPRIATE TO ADMINISTER. NORCO WAS ADMINISTERED TO PATIENT WITHOUT ANY ISSUES WITH SWALLOWING. PATIENT'S BREATHING IS NORMAL WITH SYMMETRICAL RISE AND FALL OF CHEST. WILL CONTINUE TO OBSERVE PATIENT.
[2022-12-13 06:16] LABS: BASOPHILS # (AUTO) 0.1 K/uL (0.00-0.22); BASOPHILS % (AUTO) 1.1 % (0.0-2.0); EOSINOPHILS # (AUTO) 0.2 K/uL (0-0.4); EOSINOPHILS % (AUTO) 2.8 % (0.0-4.0); HEMATOCRIT 31.7 % (36-48); LYMPHOCYTES # (AUTO) 1.7 K/uL (2.5-16.5); LYMPHOCYTES % (AUTO) 22.9 % (20.5-51.1); MEAN CORPUSCULAR HEMOGLOBIN 34 pg (27-31); MEAN CORPUSCULAR HGB CONC 35 g/dL (33-37); MEAN CORPUSCULAR VOLUME 98.5 fL (80-94); MONOCYTES # (AUTO) 0.5 K/uL (0.8-1.0); MONOCYTES % (AUTO) 6.4 % (1.7-9.3); NEUTROPHILS # (AUTO) 5.1 K/uL (1.8-7.7); NEUTROPHILS % (AUTO) 66.8 % (42.2-75.2); PLATELET COUNT (AUTO) 227 K/uL (140-450); RED BLOOD CELL COUNT(AUTO) 3.22 MIL/uL (4.20-5.40); RED CELL DISTRIBUTION WIDTH 13.5 % (11.6-13.7); WHITE BLOOD COUNT (AUTO) 7.6 K/uL (4.8-10.8)
[2022-12-13 06:29] LABS: ANION GAP 13.8 (8-16); CARBON DIOXIDE 30.1 mmol/L (21-32); CHLORIDE 100 mmol/L (98-107); GLUCOSE 94 mg/dL (74-106); POTASSIUM 3.9 mmol/L (3.5-5.1); SODIUM SERUM 140 mmol/L (136-145); UREA NITROGEN, BLOOD 22 mg/dL (7-18)
[2022-12-13 06:34] LABS: MAGNESIUM 2.4 mg/dL (1.8-2.4); PHOSPHORUS 3.9 mg/dL (2.5-4.9)
[2022-12-13 06:35] LABS: CREATININE 5.6 mg/dL (0.6-1.3)
--- NOTE | 2022-12-13 06:41 | NUR ---
RECEIVED CRITICAL LAB FOR CREATININE 5.6. MESSAGED DR. JENKINS. PENDING RESPONSE.
--- NOTE | 2022-12-13 07:37 | NUR ---
ENDORSED TO DAY SHIFT NURSE ERIN FOR CONTINUITY OF CARE. PATIENT IS STABLE.
[2022-12-13] MEDS: ATORVASTATIN 20 MG TAB PO SCH (08:36)
[2022-12-13] MEDS: ASPIRIN 81 MG TAB.CHEW PO SCH (08:36)
--- NOTE | 2022-12-13 09:31 | NUR ---
NURSES NOTE PATIENT RECEIVED AT BED SIDE A/OX4 , VSS , SINUS RHYTHM ON MONITOR , ON RENAL DIET SKIN INTACT , HAS EDEMA , LOWER EXTREMITY WEAKNESS , AMBULATORY WITH WALKER MINIMAL ASSISTANCE , ON ROOM AIR, SALINE LOCKED , SAFETY PROACTION IN PLACE , SIDE RAILS UP X3 , BED IN LOWER POSITION , CALL LIGHT WITHIN REACH , CONTINENT BOTH GI AND CU , NO COMPLAIN AT THIS TIME EDUCATION ABOUT MEDS , SAFETY , CARE PLAN , PT STILL UNDER OBSERVE
[2022-12-13 09:35] VITALS: BP 123/50
[2022-12-13 12:20] VITALS: BP 127/50
--- NOTE | 2022-12-13 12:57 | NUR ---
NURSES NOTE PATIENT A/OX4 , VSS , SINUS PEG CARDIA , ON ROOM AIR , CONTINENT X2 , NO COMPLAIN AT THIS TIME WILL CONTINUE OBSERVE .
--- NOTE | 2022-12-13 15:43 | NUR ---
UPDATE ON PATIENT PT SCHEDULE FOR HD TOMORROW NURSES NOTE PATIENT RECEIVED AT BED SIDE A/OX4 , VSS , SINUS RHYTHM ON MONITOR , ON RENAL DIET SKIN INTACT , HAS EDEMA , LOWER EXTREMITY WEAKNESS , AMBULATORY WITH WALKER MINIMAL ASSISTANCE , ON ROOM AIR, SALINE LOCKED , SAFETY PROACTION IN PLACE , SIDE RAILS UP X3 , BED IN LOWER POSITION , CALL LIGHT WITHIN REACH , CONTINENT BOTH GI AND CU BUT SOME TIME CIRILO , NO COMPLAIN AT THIS TIME EDUCATION ABOUT MEDS , SAFETY , CARE PLAN , PT STILL UNDER OBSERVE
[2022-12-13 16:24] VITALS: BP 125/56
--- NOTE | 2022-12-13 19:06 | NUR ---
REPORT GIVEN TO BK DONNELLY ALL HER QUESTION ANSWER .
--- NOTE | 2022-12-13 19:08 | NUR ---
PT IS AWAKE, ALERT AND VERBALLY RESPONSIVE. SON IS AT BEDSIDE. PT IS ABLE TO AMBULATE TO RESTROOM INDEPENDENTLY. IV SITE IS ON RIGHT FOREARM, INTACT AND PATENT.
[2022-12-13 20:00] VITALS: BP 131/60
--- NOTE | 2022-12-13 20:46 | NUR ---
PT COMPLAINTS OF CHEST PAIN ON LEFT SIDE RADIATING TO LEFT SHOULDER AND BACK. NITROGLYCERIN ADMINISTERED X 1, PT STATED CHEST PAIN IS GONE AWAY.
--- NOTE | 2022-12-13 23:00 | NUR ---
PT SLEEPS WELL.
[2022-12-14] VITALS: BP 123/57
--- NOTE | 2022-12-14 01:00 | NUR ---
PT IS ASLEEP, NO FACIAL GRIMACING.
--- NOTE | 2022-12-14 03:00 | NUR ---
PT IS ASLEEP.
[2022-12-14 04:00] VITALS: BP 137/64
--- NOTE | 2022-12-14 05:00 | NUR ---
PT IS AWAKE AND DENIES OF FEELING PAIN.
--- NOTE | 2022-12-14 06:30 | NUR ---
PT DONE RECEIVING DIALYSIS, 1L OUT. PT IS STABLE. NO FURTHER NEEDS ARE TO BE MET AT THIS TIME, WILL CONTINUE WITH CARE. Addendum: 12/14/22 at 2023 by PEDRO LUIS LEMUS RN TIME 1830, NOT [id number]
--- NOTE | 2022-12-14 07:00 | NUR ---
RECEIVED REPORT FROM NIGHTSHIFT NURSE. PT IS ASLEEP IN BED, WOKE TO NAME AND TOUCH, NO REPORTS OF PAIN OR DISCOMFORT A THIS TIME. PT AOX4, ON RM AIR. IV TO RIGHT AC 20G, SALINE LOCK, CLEAN AND INTACT. NO FURTHER NEEDS ARE TO BE MET AT THIS TIME. WILL CONTINUE WITH CARE. BED IN LOWEST POSITION, 2 SIDE RAILS UP, CALL LIGHT WITHIN REACH.
[2022-12-14 07:43] LABS: BASOPHILS # (AUTO) 0.1 K/uL (0.00-0.22); BASOPHILS % (AUTO) 0.8 % (0.0-2.0); EOSINOPHILS # (AUTO) 0.3 K/uL (0-0.4); EOSINOPHILS % (AUTO) 3.5 % (0.0-4.0); HEMOGLOBIN 10.5 g/dL (12.0-16.0); LYMPHOCYTES # (AUTO) 1.7 K/uL (2.5-16.5); LYMPHOCYTES % (AUTO) 22.5 % (20.5-51.1); MEAN CORPUSCULAR HEMOGLOBIN 34 pg (27-31); MEAN CORPUSCULAR HGB CONC 35 g/dL (33-37); MEAN CORPUSCULAR VOLUME 98.2 fL (80-94); MONOCYTES # (AUTO) 0.5 K/uL (0.8-1.0); MONOCYTES % (AUTO) 6.5 % (1.7-9.3); NEUTROPHILS # (AUTO) 4.9 K/uL (1.8-7.7); NEUTROPHILS % (AUTO) 66.7 % (42.2-75.2); PLATELET COUNT (AUTO) 218 K/uL (140-450); RED BLOOD CELL COUNT(AUTO) 3.06 MIL/uL (4.20-5.40); RED CELL DISTRIBUTION WIDTH 13.4 % (11.6-13.7); WHITE BLOOD COUNT (AUTO) 7.4 K/uL (4.8-10.8)
[2022-12-14 08:00] VITALS: BP 132/52
[2022-12-14 08:02] LABS: ANION GAP 14.5 (8-16); CARBON DIOXIDE 28.8 mmol/L (21-32); CHLORIDE 101 mmol/L (98-107); GLUCOSE 92 mg/dL (74-106); POTASSIUM 4.3 mmol/L (3.5-5.1); SODIUM SERUM 140 mmol/L (136-145); UREA NITROGEN, BLOOD 31 mg/dL (7-18)
[2022-12-14 08:09] LABS: CREATININE 6.7 mg/dL (0.6-1.3)
[2022-12-14 08:10] LABS: MAGNESIUM 2.4 mg/dL (1.8-2.4); PHOSPHORUS 3.9 mg/dL (2.5-4.9)
[2022-12-14] MEDS: ASPIRIN 81 MG TAB.CHEW PO SCH (08:36)
[2022-12-14] MEDS: ATORVASTATIN 20 MG TAB PO SCH (08:36)
[2022-12-14] MEDS: HYDROcodone/APAP 5/325 MG 1 TAB TAB PO PRN ×2 (08:36→20:28)
[2022-12-14] MEDS ORDERED: ASPI81CT95 PO (10:43)
[2022-12-14] MEDS ORDERED: ATOR20TA40 PO (10:43)
[2022-12-14 12:00] VITALS: BP 110/49
[2022-12-14 16:00] VITALS: BP 105/45
[2022-12-14 16:44] VITALS: BP 110/49
--- NOTE | 2022-12-14 19:10 | NUR ---
PT DONE RECEIVING DIALYSIS AT 1830, 1L OUT. PT IS STABLE. INFORMED OF DISCHARGE, PROVIDED DISCHARGE INSTRUCTIONS. PT VERBALIZE UNDERSTANDING. ENDORSED PT TO NIGHTSHIFT NURSE FOR CONTINUITY OF CARE.
--- NOTE | 2022-12-14 20:28 | NUR ---
PT COMPLAINTS OF HAVING NUMB AND PAIN ON LEFT ARM 5/10 RELATED TO HER AV SHUNT ON THAT ARM. PAIN MEDICATION NORCO ADMINISTERED ORDERED.
--- NOTE | 2022-12-14 21:08 | NUR ---
NIGHT MEDICATIONS ADMINISTERED TO PT. PT TOLERATES WELL WITH NO SIDE REACTION.
--- NOTE | 2022-12-14 21:10 | NUR ---
PT DISCHARGE HOME WITH DAUGHTER IN [employer]. PT HAS STABLE GAIT AND VERBALIZED TO WILLING TO AMBULATE TO THE CAR. PT REFUSE TO USE WHEELCHAIR. SKIN IS INTACT AND WARM.
== END 2022-12-14 21:10 | disposition home or self-care (01) | DRG 205 ==
LOC: MED 19:52 → MTU 12-12 01:09
PROVIDERS: ADMIT Student in an Organized Health Care Education/Training Program; ATTEND Student in an Organized Health Care Education/Training Program
PROC: 5A1D70Z Performance of Urinary Filtration, Intermittent, Less than 6 Hours Per Day (ICD-10-PCS; principal; 2022-12-14)
DX: M94.0 Chondrocostal junction syndrome [Tietze] (principal); N18.6 End stage renal disease; I12.0 Hypertensive chronic kidney disease with stage 5 chronic kidney disease or end stage renal disease; Z20.822 Contact with and (suspected) exposure to COVID-19; E87.6 Hypokalemia; E78.5 Hyperlipidemia, unspecified; J44.9 Chronic obstructive pulmonary disease, unspecified; D63.1 Anemia in chronic kidney disease; Z99.2 Dependence on renal dialysis; Z85.3 Personal history of malignant neoplasm of breast; Z79.899 Other long term (current) drug therapy
CPT/HCPCS: 36415; 71045; 80048; 80053; 83605; 83735; 83880; 84100; 84484; 85025; 85379; 85610; 85730; 87040; 87081; 99285; J1644

== ENCOUNTER 2023-06-01 12:54 | Emergency (ER) | payer OTHER ==
[~2023-06-01] VITALS: Ht 149.9 cm; Wt 61.8 kg
[~2023-06-01 12:54] MED LIST changes: +ALEN35TA PO; +AMLO10TA PO; +ASPI81CT95 PO; +ATOR20TA40 PO; +CARV3.12 PO; +CINA30TA4 PO; +GABA100C PO; +SEVE800T6 PO; +[UNRECOGNIZED DRUG - CODE] PO
[2023-06-01 13:09] VITALS: BP 144/58; PULSE 60; RESP 18; TEMP 97.7; O2SAT 100
[2023-06-01 13:40] VITALS: O2SAT 100
[2023-06-01] MEDS ORDERED: ALBU10.7 (14:06)
[2023-06-01] MEDS ORDERED: CICL6.6S22 TP (14:06)
[2023-06-01] MEDS ORDERED: AMLO10TA88 PO (14:06)
[2023-06-01] MEDS ORDERED: GABA-636 PO (14:06)
[2023-06-01] MEDS ORDERED: SEVE800T6 (14:06)
[2023-06-01] MEDS ORDERED: ATOR10TA51 PO (14:06)
[2023-06-01] MEDS ORDERED: [UNRECOGNIZED DRUG - CODE] PO (14:06)
[2023-06-01] MEDS ORDERED: CARV3.122 PO (14:06)
[2023-06-01 14:12] LABS: BASOPHILS # (AUTO) 0.1 K/uL (0.00-0.22); BASOPHILS % (AUTO) 0.9 % (0.0-2.0); EOSINOPHILS # (AUTO) 0.3 K/uL (0-0.4); HEMATOCRIT 28.6 % (36-48); HEMOGLOBIN 9.9 g/dL (12.0-16.0); LYMPHOCYTES # (AUTO) 1.7 K/uL (2.5-16.5); LYMPHOCYTES % (AUTO) 25.1 % (20.5-51.1); MEAN CORPUSCULAR HEMOGLOBIN 34 pg (27-31); MEAN CORPUSCULAR HGB CONC 35 g/dL (33-37); MEAN CORPUSCULAR VOLUME 97.1 fL (80-94); MONOCYTES # (AUTO) 0.6 K/uL (0.8-1.0); PLATELET COUNT (AUTO) 217 K/uL (140-450); RED BLOOD CELL COUNT(AUTO) 2.95 MIL/uL (4.20-5.40); RED CELL DISTRIBUTION WIDTH 14.8 % (11.6-13.7); WHITE BLOOD COUNT (AUTO) 6.7 K/uL (4.8-10.8)
[2023-06-01 14:39] VITALS: BP 114/88; PULSE 63; RESP 18; O2SAT 100
[2023-06-01] MEDS ORDERED: ACETAMINOPHEN 325 MG TAB PO ONE (14:50)
[2023-06-01] MEDS ORDERED: MECLIZINE 25 MG TAB PO ONE (14:50)
[2023-06-01 14:53] LABS: PARTIAL THROMBOPLASTIN TIME 28.1 secs (22-35.6); PROTHROMBIN TIME 10.5 secs (10.8-13.4)
[2023-06-01 14:58] LABS: ALANINE AMINOTRANSFERASE 16 U/L (12-78); ALBUMIN 3.5 g/dL (3.4-5.0); ALKALINE PHOSPHATASE 112 U/L (50-136); ANION GAP 10.6 (8-16); ASPARTATE AMINOTRANSFERASE 11 U/L (15-37); CARBON DIOXIDE 32.6 mmol/L (21-32); CHLORIDE 100 mmol/L (98-107); GLUCOSE 94 mg/dL (74-106); POTASSIUM 4.2 mmol/L (3.5-5.1); SODIUM SERUM 139 mmol/L (136-145); TOTAL BILIRUBIN 0.5 mg/dL (0.0-1.0); UREA NITROGEN, BLOOD 17 mg/dL (7-18)
[2023-06-01 15:07] LABS: CREATININE 4.6 mg/dL (0.6-1.3)
[2023-06-01] MEDS ORDERED: methylPREDNISolone SS 125 MG/2 ML VIAL IVP ONE (16:05)
[2023-06-01] MEDS ORDERED: MECL-416 PO (17:09)
[2023-06-01 17:22] LABS: APPEARANCE,URINE CLEAR (CLEAR); BILIRUBIN,URINE NEGATIVE (NEGATIVE); BLOOD, URINE NEGATIVE (NEGATIVE); COLOR,URINE YELLOW (YELLOW); LEUKOCYTE ESTERASE ,URINE NEGATIVE (NEGATIVE); NITRITE, URINE NEGATIVE (NEGATIVE); PH,URINE 8.5 (5.0-9.0); PROTEIN,URINE 2+ (NEGATIVE); UGLUCOSE NEGATIVE (NEGATIVE); UROBILINOGEN,URINE 0.2 EU/dL (0.2 - 1)
== END 2023-06-01 17:34 | disposition home or self-care (01) ==
LOC: MED 12:54
DX: M25.512 Pain in left shoulder (principal); M54.2 Cervicalgia; R42 Dizziness and giddiness; R51.9 Headache, unspecified; J45.909 Unspecified asthma, uncomplicated; J44.9 Chronic obstructive pulmonary disease, unspecified; I12.0 Hypertensive chronic kidney disease with stage 5 chronic kidney disease or end stage renal disease; N18.6 End stage renal disease; Z79.899 Other long term (current) drug therapy
CPT/HCPCS: 36415; 70450; 70496; 70498; 71045; 73030; 80053; 81003; 84484; 85025; 85610; 85730; 93005; 96374; 99285; J2930; J8597; Q0163; Q9967

== ENCOUNTER 2023-08-04 13:17 | Emergency (ER) | payer OTHER ==
[~2023-08-04] VITALS: Ht 149.9 cm; Wt 61.2 kg
[~2023-08-04 13:17] MED LIST changes: +ALBU10.7; +AMLO10TA88 PO; +ATOR10TA51 PO; +CARV3.122 PO; +CICL6.6S22 TP; +GABA-636 PO; +MECL-416 PO; +SEVE800T6; +[UNRECOGNIZED DRUG - CODE] PO
[2023-08-04 13:29] VITALS: BP 117/53; PULSE 76; RESP 14; TEMP 98.8; O2SAT 97
[2023-08-04 15:08] LABS: BASOPHILS # (AUTO) 0.1 K/uL (0.00-0.22); BASOPHILS % (AUTO) 1.1 % (0.0-2.0); EOSINOPHILS # (AUTO) 0.2 K/uL (0-0.4); EOSINOPHILS % (AUTO) 2.6 % (0.0-4.0); HEMATOCRIT 34.9 % (36-48); HEMOGLOBIN 11.9 g/dL (12.0-16.0); LYMPHOCYTES # (AUTO) 1.6 K/uL (2.5-16.5); LYMPHOCYTES % (AUTO) 21.2 % (20.5-51.1); MEAN CORPUSCULAR HEMOGLOBIN 34 pg (27-31); MEAN CORPUSCULAR HGB CONC 34 g/dL (33-37); MEAN CORPUSCULAR VOLUME 99.2 fL (80-94); MONOCYTES # (AUTO) 0.6 K/uL (0.8-1.0); MONOCYTES % (AUTO) 7.9 % (1.7-9.3); NEUTROPHILS % (AUTO) 67.2 % (42.2-75.2); PLATELET COUNT (AUTO) 240 K/uL (140-450); RED BLOOD CELL COUNT(AUTO) 3.52 MIL/uL (4.20-5.40); RED CELL DISTRIBUTION WIDTH 13.7 % (11.6-13.7); WHITE BLOOD COUNT (AUTO) 7.5 K/uL (4.8-10.8)
[2023-08-04 15:32] LABS: ALANINE AMINOTRANSFERASE 17 U/L (12-78); ALBUMIN 3.8 g/dL (3.4-5.0); ALKALINE PHOSPHATASE 131 U/L (50-136); ANION GAP 10.4 (8-16); ASPARTATE AMINOTRANSFERASE 14 U/L (15-37); CALCIUM 8.8 mg/dL (8.5-10.1); CARBON DIOXIDE 34.5 mmol/L (21-32); CHLORIDE 98 mmol/L (98-107); CREATININE 2.8 mg/dL (0.6-1.3); GLUCOSE 85 mg/dL (74-106); POTASSIUM 3.9 mmol/L (3.5-5.1); SODIUM SERUM 139 mmol/L (136-145); TOTAL BILIRUBIN 0.5 mg/dL (0.0-1.0); TOTAL PROTEIN, SERUM 7.8 g/dL (6.4-8.2); UREA NITROGEN, BLOOD 6 mg/dL (7-18)
[2023-08-04 15:33] LABS: PROTHROMBIN TIME 10.5 secs (10.8-13.4)
[2023-08-04] MEDS ORDERED: IPRATROPIUM 0.02% 0.5 MG/2.5 ML NEBU INH ONE (15:45)
[2023-08-04] MEDS ORDERED: ALBUTEROL 0.083% 2.5 MG/3 ML NEBU INH ONE (15:45)
[2023-08-04] MEDS ORDERED: ACETAMINOPHEN EXTRA STRENGTH 500 MG TAB PO ONE (16:15)
[2023-08-04 16:17] VITALS: PULSE 72; RESP 16; RESP 18; O2SAT 97
[2023-08-04 18:00] VITALS: BP 119/58; PULSE 72; RESP 15; TEMP 98.8; O2SAT 97
== END 2023-08-04 18:00 | disposition home or self-care (01) ==
LOC: MED 13:17
DX: J06.9 Acute upper respiratory infection, unspecified (principal); J45.909 Unspecified asthma, uncomplicated; J44.9 Chronic obstructive pulmonary disease, unspecified; I12.0 Hypertensive chronic kidney disease with stage 5 chronic kidney disease or end stage renal disease; N18.6 End stage renal disease; Z86.73 Personal history of transient ischemic attack (TIA), and cerebral infarction without residual deficits; Z99.2 Dependence on renal dialysis; Z79.899 Other long term (current) drug therapy
CPT/HCPCS: 36415; 71045; 80053; 83880; 84484; 85025; 85610; 85730; 93005; 94640; 99285; J7613; J7644

== ENCOUNTER 2024-06-27 11:01 | Inpatient (IN) | payer OTHER ==
[~2024-06-27] VITALS: Ht 149.9 cm; Wt 63.5 kg
[2024-06-27 11:29] VITALS: BP 144/62; PULSE 61; RESP 16; TEMP 97; O2SAT 100
[2024-06-27] MEDS: ACETAMINOPHEN EXTRA STRENGTH 500 MG TAB PO ONE (12:16)
[2024-06-27 12:48] LABS: BASOPHILS # (AUTO) 0.1 K/uL (0.00-0.22); BASOPHILS % (AUTO) 1.2 % (0.0-2.0); EOSINOPHILS # (AUTO) 0.2 K/uL (0-0.4); EOSINOPHILS % (AUTO) 2.6 % (0.0-4.0); HEMATOCRIT 32.4 % (36-48); HEMOGLOBIN 11.1 g/dL (12.0-16.0); LYMPHOCYTES # (AUTO) 1.2 K/uL (2.5-16.5); LYMPHOCYTES % (AUTO) 16.5 % (20.5-51.1); MEAN CORPUSCULAR HEMOGLOBIN 34 pg (27-31); MEAN CORPUSCULAR HGB CONC 34 g/dL (33-37); MEAN CORPUSCULAR VOLUME 98.2 fL (80-94); MONOCYTES # (AUTO) 0.4 K/uL (0.8-1.0); MONOCYTES % (AUTO) 5.7 % (1.7-9.3); NEUTROPHILS # (AUTO) 5.4 K/uL (1.8-7.7); PLATELET COUNT (AUTO) 223 K/uL (140-450); RED CELL DISTRIBUTION WIDTH 14.9 % (11.6-13.7); WHITE BLOOD COUNT (AUTO) 7.3 K/uL (4.8-10.8)
[2024-06-27 13:22] LABS: CALCIUM 8.1 mg/dL (8.5-10.1); CARBON DIOXIDE 33.2 mmol/L (21-32); CHLORIDE 98 mmol/L (98-107); GLUCOSE 86 mg/dL (74-106); POTASSIUM 4.2 mmol/L (3.5-5.1); SODIUM SERUM 138 mmol/L (136-145); UREA NITROGEN, BLOOD 20 mg/dL (7-18)
[2024-06-27 13:30] LABS: FLU A ANTIGEN negative (NEGATIVE); FLU B ANTIGEN negative (NEGATIVE)
[2024-06-27 13:35] LABS: LACTIC ACID 1.1 mmol/L (0.4-2.0)
[2024-06-27 13:38] LABS: CREATININE 5.2 mg/dL (0.6-1.3)
[2024-06-27 13:57] LABS: APPEARANCE,URINE CLEAR (CLEAR); BILIRUBIN,URINE NEGATIVE (NEGATIVE); BLOOD, URINE NEGATIVE (NEGATIVE); COLOR,URINE YELLOW (YELLOW); LEUKOCYTE ESTERASE ,URINE NEGATIVE (NEGATIVE); NITRITE, URINE NEGATIVE (NEGATIVE); PH,URINE 8.5 (5.0-9.0); PROTEIN,URINE NEGATIVE (NEGATIVE); UGLUCOSE NEGATIVE (NEGATIVE); UROBILINOGEN,URINE 0.2 EU/dL (0.2 - 1)
[2024-06-27] MEDS ORDERED: ONDANSETRON 4 MG/2 ML VIAL IVP PRN (16:00)
[2024-06-27] MEDS ORDERED: AZITHROMYCIN 500 MG in DEXTROSE 5% 250 ML IV SCH (16:00)
[2024-06-27] MEDS ORDERED: MORPHINE SULFATE 2 MG/ML SYR IVP PRN (16:00)
[2024-06-27] MEDS ORDERED: cefTRIAXone 1,000 MG VIAL ONE (16:09)
[2024-06-27] MEDS ORDERED: AZITHROMYCIN 500 MG INJ VIAL IV ONE (16:47)
[2024-06-27] MEDS: AZITHROMYCIN 500 MG in DEXTROSE 5% 250 ML IV SCH (16:57)
[2024-06-27 17:30] VITALS: BP 135/50; PULSE 61; RESP 18; TEMP 97.2; O2SAT 97
[2024-06-27 19:17] VITALS: O2SAT 98
[2024-06-27 20:00] VITALS: BP 139/56; PULSE 57; RESP 17; TEMP 97.3; O2SAT 94
[2024-06-27 23:13] VITALS: O2SAT 98
[2024-06-28] VITALS (9 sets, daily range): BP systolic 131–154; BP diastolic 44–60; PULSE 56–63; RESP 17–20; TEMP 96.7–97.6; O2SAT 94–99
[2024-06-28 06:56] LABS: BASOPHILS # (AUTO) 0.1 K/uL (0.00-0.22); BASOPHILS % (AUTO) 0.9 % (0.0-2.0); EOSINOPHILS # (AUTO) 0.2 K/uL (0-0.4); EOSINOPHILS % (AUTO) 3.3 % (0.0-4.0); HEMATOCRIT 32.5 % (36-48); HEMOGLOBIN 11.2 g/dL (12.0-16.0); LYMPHOCYTES # (AUTO) 1.1 K/uL (2.5-16.5); LYMPHOCYTES % (AUTO) 17.8 % (20.5-51.1); MEAN CORPUSCULAR HEMOGLOBIN 34 pg (27-31); MEAN CORPUSCULAR HGB CONC 34 g/dL (33-37); MEAN CORPUSCULAR VOLUME 98.4 fL (80-94); MONOCYTES # (AUTO) 0.4 K/uL (0.8-1.0); MONOCYTES % (AUTO) 6.1 % (1.7-9.3); NEUTROPHILS # (AUTO) 4.5 K/uL (1.8-7.7); NEUTROPHILS % (AUTO) 71.9 % (42.2-75.2); PLATELET COUNT (AUTO) 210 K/uL (140-450); RED BLOOD CELL COUNT(AUTO) 3.31 MIL/uL (4.20-5.40); RED CELL DISTRIBUTION WIDTH 14.3 % (11.6-13.7); WHITE BLOOD COUNT (AUTO) 6.2 K/uL (4.8-10.8)
[2024-06-28 08:02] LABS: ALANINE AMINOTRANSFERASE 21 U/L (12-78); ALBUMIN 3.5 g/dL (3.4-5.0); ALKALINE PHOSPHATASE 100 U/L (50-136); ANION GAP 13.8 (8-16); ASPARTATE AMINOTRANSFERASE 18 U/L (15-37); CALCIUM 8.5 mg/dL (8.5-10.1); CARBON DIOXIDE 30.2 mmol/L (21-32); CHLORIDE 99 mmol/L (98-107); GLUCOSE 77 mg/dL (74-106); SODIUM SERUM 139 mmol/L (136-145); TOTAL BILIRUBIN 0.6 mg/dL (0.0-1.0); TOTAL PROTEIN, SERUM 7.1 g/dL (6.4-8.2); UREA NITROGEN, BLOOD 24 mg/dL (7-18)
[2024-06-28 08:08] LABS: CREATININE 5.8 mg/dL (0.6-1.3)
[2024-06-28] MEDS: guaiFENesin 20 MG/ML UDC PO PRN (11:10)
[2024-06-28] MEDS: guaiFENesin 600 MG TABER PO SCH (20:39)
[2024-06-28] MEDS: ACETAMINOPHEN 325 MG TAB PO PRN (20:41)
[2024-06-29] VITALS: BP 131/62; PULSE 58; PULSE 67; RESP 19; TEMP 96.7; O2SAT 97
[2024-06-29 04:00] VITALS: BP 123/44; PULSE 53; PULSE 61; RESP 19; TEMP 97.1; O2SAT 100
[2024-06-29 08:00] VITALS: BP 123/55; PULSE 59; PULSE 75; PULSE 86; RESP 20; TEMP 96.8; O2SAT 100; O2SAT 99
[2024-06-29 12:00] VITALS: BP 118/58; PULSE 72; PULSE 93; RESP 20; TEMP 97.6; O2SAT 97
[2024-06-29] MEDS: AMIODARONE 200 MG TAB PO SCH (14:33)
[2024-06-29 16:00] VITALS: BP 119/59; PULSE 69; RESP 20; TEMP 97.6; O2SAT 98
[2024-06-29] MEDS ORDERED: APIX2.5 PO (16:47)
[2024-06-29] MEDS ORDERED: [UNRECOGNIZED DRUG - CODE] PO (16:47)
[2024-06-29] MEDS ORDERED: AZIT250T4 PO (16:47)
[2024-06-29 17:28] VITALS: BP 119/59; PULSE 75; RESP 20; TEMP 97.7
[2024-06-29] MEDS ORDERED: APIXABAN 2.5 MG TAB PO SCH (21:00)
[2024-06-30] MEDS ORDERED: AMIODARONE 200 MG TAB PO SCH (09:00)
[2024-06-30] MEDS ORDERED: ATORVASTATIN 20 MG TAB PO SCH (09:00)
== END 2024-06-29 18:45 | disposition home or self-care (01) | DRG 177 ==
LOC: MED 11:01 → MTU 16:04
PROVIDERS: ADMIT Hospitalist; ATTEND Hospitalist
PROC: 5A1D70Z Performance of Urinary Filtration, Intermittent, Less than 6 Hours Per Day (ICD-10-PCS; principal; 2024-06-28)
DX: J15.69 Pneumonia due to other Gram-negative bacteria (principal); N18.6 End stage renal disease; I12.0 Hypertensive chronic kidney disease with stage 5 chronic kidney disease or end stage renal disease; J44.0 Chronic obstructive pulmonary disease with (acute) lower respiratory infection; E78.5 Hyperlipidemia, unspecified; Z20.822 Contact with and (suspected) exposure to COVID-19; D63.1 Anemia in chronic kidney disease; I48.0 Paroxysmal atrial fibrillation; Z99.2 Dependence on renal dialysis; Z85.3 Personal history of malignant neoplasm of breast; Z79.899 Other long term (current) drug therapy
CPT/HCPCS: 36415; 71045; 80048; 80053; 81003; 83605; 83735; 83880; 84484; 85025; 87040; 87081; 90935; 93005; 96365; 99285; J0456; J0696; J7060